=== PATIENT | female | born 1985 | race Caucasian/White ===

== ENCOUNTER 2020-12-05 14:21 | Emergency (ER) | payer SELFPAY ==
[2020-12-05 15:05] LABS: BASOPHILS # (AUTO) 0.1 10^3/uL (0.0-0.1); BASOPHILS % (AUTO) 0.5 %; EOSINOPHILS # (AUTO) 0.1 10^3/uL (0.0-0.7); EOSINOPHILS % (AUTO) 0.4 %; HGB - HEMOGLOBIN 13.2 g/dL (12.0-16.0); LYMPHOCYTES # (AUTO) 1.1 10^3/uL (1.5-3.5); LYMPHOCYTES % (AUTO) 7.9 %; MEAN CORPUSCULAR HEMOGLOBIN 30.9 pg (27.0-31.0); MEAN CORPUSCULAR HGB CONC 32.6 g/dL (32.0-36.0); MEAN CORPUSCULAR VOLUME 94.8 fL (81.0-99.0); MEAN PLATELET VOLUME 11.1 fL (7.9-10.8); MONOCYTES # (AUTO) 0.6 10^3/uL (0.0-1.0); MONOCYTES % (AUTO) 4.5 %; NEUTROPHILS # (AUTO) 12.1 10^3/uL (1.5-6.6); NEUTROPHILS % (AUTO) 86.3 %; PLT - PLATELET COUNT 262 10^3/uL (130-450); RED BLOOD COUNT 4.27 10^6/uL (4.20-5.40); RED CELL DISTRIBUTION WIDTH 12.8 % (12.0-15.0)
[2020-12-05 15:13] LABS: ALBUMIN 4.5 g/dL (3.2-5.5); ALBUMIN/GLOBULIN RATIO 1.7 (1.0-2.2); BILIRUBIN,TOTAL 0.2 mg/dL (0.2-1.0); CREATININE 0.8 mg/dL (0.4-1.0); TOTAL PROTEIN 7.2 g/dL (6.7-8.2)
[2020-12-05] MEDS ORDERED: HYDROmorphone 1 MG/ML CARPUJECT IVP STA (16:04)
[2020-12-05] MEDS ORDERED: LIDOCAINE VISCOUS 2% 15 ML UDC MM STA (16:04)
[2020-12-05] MEDS ORDERED: PANTOPRAZOLE 40 MG VIAL IVP STA (16:04)
[2020-12-05] MEDS ORDERED: SODIUM CHLORIDE 0.9% 1,000 ML IV STA (16:04)
[2020-12-05] MEDS ORDERED: ONDANSETRON 4 MG/2 ML VIAL IVP STA (16:04)
--- NOTE | 2020-12-05 16:07 | ED Physician Documentation ---
History of Present Illness - Stated complaint Stated Complaint: THROWING UP BLOOD,ABD PX - Chief complaint Chief Complaint: Abd Pain - Additonal information Additional information: 34-year-old female presents to the emergency department for evaluation of uncontrolled vomiting and blood-tinged vomit. She reports that for 2 to 3 days she has felt gassy and bloated. Last night after dinner she went to bed feeling nauseated and woke up about 1 AM and began to vomit. She had about 8 or 9 episodes of vomiting and found that there was some blood streaking in the vomit. There was no coffee-ground emesis. No melena or hematochezia. She does report some diarrhea that is loose watery and brown. Denies a history of anticoagulants, NSAID use or ETOH frequency. She is tobacco user. No previous history of abdominal surgeries. Review of Systems Constitutional: denies: Fever, Chills Eyes: reports: Reviewed and negative Ears: reports: Reviewed and negative Nose: reports: Reviewed and negative Throat: reports: Reviewed and negative Cardiac: reports: Reviewed and negative Respiratory: reports: Reviewed and negative GI: reports: Abdominal Pain, Nausea, Vomiting, Hematemesis. denies: Constipation, Diarrhea, Bloody / black stool : denies: Dysuria, Frequency, Hesitancy Skin: denies: Rash, Lesions Musculoskeletal: reports: Reviewed and negative Neurologic: reports: Reviewed and negative PD PAST MEDICAL HISTORY - Past Medical History Past Medical History: No - Present Medications Home Medications: Ambulatory Orders Medication Instructions Recorded Confirmed Omeprazole 40 mg PO DAILY #14 capsule. 12/05/20 Ondansetron Odt [Zofran] 4 mg TL Q6H PRN #10 tablet 12/05/20 - Allergies Allergies/Adverse Reactions: Allergies Allergy/AdvReac Type Severity Reaction Status Date / Time Penicillins Allergy Rash Verified 12/05/20 14:36 Sulfa (Sulfonamide Allergy Hives Verified 12/05/20 14:36 Antibiotics) - Social History Does the pt smoke?: No Smoking Status: Never smoker PD ED PE NORMAL - General General: Alert and oriented X 3, No acute distress, Well developed/nourished - HEENT HEENT: PERRL, Moist mucous membranes - Neck Neck: Supple, no meningeal sign, No adenopathy - Cardiac Cardiac: RRR, No murmur, No gallop, No rub - Respiratory Respiratory: No respiratory distress, Clear bilaterally - Abdomen Abdomen: Normal bowel sounds, Soft. No: Non tender (Very minimal epigastric tenderness without guarding or rebound. Negative Owen's, negative McBurney's. Generally very reassuring abdominal exam) - Back Back: No CVA TTP, No spinal TTP - Derm Derm: Normal color, Warm and dry, No rash - Extremities Extremities: No deformity, No tenderness to palpate, Normal ROM s pain - Neuro Neuro: Alert and oriented X 3, senior teller 2-12 intact Eye Opening: Spontaneous Motor: Obeys Commands Verbal: Oriented GCS Score: 15 - Psych Psych: Normal mood Results - Vitals Vitals: Vital Signs - 24 hr 12/05/20 12/05/20 12/05/20 14:33 15:22 16:15 Temperature 36.4 C L 36.7 C Heart Rate 58 L 52 L 70 Respiratory 16 24 16 Rate Blood Pressure 124/63 111/52 L 115/67 O2 Saturation 100 100 99 Oxygen O2 Source Room air - Labs Labs: Laboratory Tests 12/05/20 12/05/20 12/05/20 14:55 14:55 16:11 WBC 14.0 H RBC 4.27 Hgb 13.2 Hct 40.5 MCV 94.8 MCH 30.9 MCHC 32.6 RDW 12.8 Plt Count 262 MPV 11.1 H Neut # (Auto) 12.1 H Lymph # (Auto) 1.1 L Jenkins # (Auto) 0.6 Eos # (Auto) 0.1 Baso # (Auto) 0.1 Absolute Nucleated RBC 0.00 Nucleated RBC % 0.0 Sodium 138 Potassium 3.9 Chloride 101 Carbon Dioxide 28 Anion Gap 9.0 BUN 13 Creatinine 0.8 Estimated GFR (MDRD) 81 L Glucose 204 H Calcium 9.0 Total Bilirubin 0.2 AST 15 ALT 13 Alkaline Phosphatase 51 Total Protein 7.2 Albumin 4.5 Globulin 2.7 Albumin/Globulin Ratio 1.7 Lipase 26 Urine Color YELLOW Urine Clarity CLOUDY Urine pH 8.0 H Ur Specific Chamberlain 1.015 Urine Protein TRACE Urine Glucose (UA) NEGATIVE Urine Ketones 40 H Urine Occult Blood NEGATIVE Urine Nitrite NEGATIVE Urine Bilirubin NEGATIVE Urine Urobilinogen 0.2 (NORMAL) Ur Leukocyte Esterase NEGATIVE Urine RBC None Seen Urine WBC 0-3 Ur Squamous Epith Cells NONE SEEN Amorphous Sediment Marked Urine Bacteria None Seen Ur Microscopic Review INDICATED Urine Culture Comments NOT INDICATED PD MEDICAL DECISION MAKING - ED course Complexity details: reviewed results, re-evaluated patient, considered differential, d/w patient ED course: 34-year-old female presents the emergency department for evaluation of vomiting that began about 1 AM, epigastric pain and blood-tinged emesis. She reports that prior to the symptom of vomiting developing she had had abdominal bloating for 2 days. Here in the emergency department she had very mild epigastric tenderness only. Her electrolytes do not reveal any acute kidney injury or LFT abnormality. My suspicion for acute Qian is exceedingly low. She did report blood-tinged sputum after vomiting multiple times. I suspect she may have a stress gastritis. She was given lidocaine here in the emergency department as well as Protonix. Following this she was pain-free. She was also given Zofran and then tolerating sips of clear liquids. She does have a mild leukocytosis on CBC but no fevers. I suspect this is a stress marginalization. Her hemoglobin is normal without anemia. Following fluids, Zofran and pain medication patient is markedly improved. She has been normotensive and without tachycardia. She will be discharged home. I will write a prescription for omeprazole to be taken once or twice daily and to follow-up closely with her primary care doctor. In the future she may warrant evaluation or referral by a rolled glass crosscutter for possible EGD. Emergent return precautions were discussed Departure - Departure Disposition: 01 Home, Self Care Clinical Impression: Epigastric abdominal pain Vomiting Qualifiers: Vomiting type: unspecified Vomiting Intractability: non-intractable Nausea presence: with nausea Qualified Code(s): R11.2 - Nausea with vomiting, unspecified Condition: Stable Record reviewed to determine appropriate education?: Yes Instructions: ED Nausea Vomiting Ch Follow-Up: [facility] [Provider Group] Prescriptions: Omeprazole 40 mg PO DAILY #14 capsule. Ondansetron Odt [Zofran] 4 mg TL Q6H PRN #10 tablet PRN Reason: Nausea / Vomiting Comments: Karla you were seen in the emergency department today for vomiting. You did report blood-tinged vomit after throwing up multiple times. This can be a common finding in people that have vomited excessively. As we discussed I suspect you may have had a mild virus causing the vomiting and diarrhea but it is also likely that you are developing gastritis or stomach ulcers with your history of recent stress. I would like you to fill the prescription for the Zofran and take 2-3 times daily for the next few days. I recommend that you drink clear liquids for the next 24 hours then slowly advance your diet as tolerated to include simple foods like bananas, rice applesauce or toast. I have written a prescription for omeprazole. This is an acid slinger sequins that may help with your stomach inflammation. Please schedule an appointment for follow- up with your primary care doctor in the long-term you may need evaluation by a rolled glass crosscutter to have an EGD where they could place a camera into your stomach to look for ulcers. At any point you have high fevers, uncontrolled vomiting, black or bloody stools or suddenly severe abdominal pain please return immediately to the ER for a second evaluation
[2020-12-05 16:16] LABS: BILIRUBIN,URINE NEGATIVE (NEGATIVE); GLUCOSE, URINE (UA) NEGATIVE (NEGATIVE); KETONES,URINE (UA) 40 mg/dL (NEGATIVE); LEUKOCYTE ESTERASE, URINE NEGATIVE (NEGATIVE); NITRITE,URINE NEGATIVE (NEGATIVE); OCCULT BLOOD,URINE NEGATIVE (NEGATIVE); PROTEIN,URINE TRACE mg/dL (NEGATIVE); UROBILINOGEN,URINE 0.2 (NORMAL) E.U./dL (NORMAL)
[2020-12-05 16:20] LABS: CLARITY,URINE CLOUDY (CLEAR)
[2020-12-05 16:35] LABS: AMORPHOUS SEDIMENT,UR Marked /LPF; BACTERIA,URINE None Seen /HPF (None Seen); RBC,URINE None Seen /HPF (0-5); SQUAMOUS EPITHELIAL CELL,UR NONE SEEN (<= Few)
[2020-12-05 16:55] LABS: HCG UR QUAL NEGATIVE
[2020-12-05 17:08] VITALS: BP 110/62
== END 2020-12-05 17:08 | disposition home or self-care (01) ==
LOC: ED 14:21
DX: R10.13 Epigastric pain (principal); R11.2 Nausea with vomiting, unspecified; F43.9 Reaction to severe stress, unspecified; F17.200 Nicotine dependence, unspecified, uncomplicated
CPT/HCPCS: 36415; 80053; 81001; 81025; 83690; 85025; 96374; 99283; J1170; 81003; 87086

== ENCOUNTER 2022-10-01 12:55 | Emergency (ER) | payer MEDICAID ==
[2022-10-01 13:56] LABS: BASOPHILS # (AUTO) 0.1 10^3/uL (0.0-0.1); BASOPHILS % (AUTO) 1.1 %; EOSINOPHILS # (AUTO) 0.4 10^3/uL (0.0-0.7); EOSINOPHILS % (AUTO) 5.1 %; HCT - HEMATOCRIT 40.6 % (37.0-47.0); HGB - HEMOGLOBIN 13.2 g/dL (12.0-16.0); LYMPHOCYTES # (AUTO) 2.1 10^3/uL (1.5-3.5); LYMPHOCYTES % (AUTO) 25.6 %; MEAN CORPUSCULAR HEMOGLOBIN 30.2 pg (27.0-31.0); MEAN CORPUSCULAR HGB CONC 32.5 g/dL (32.0-36.0); MEAN CORPUSCULAR VOLUME 92.9 fL (81.0-99.0); MEAN PLATELET VOLUME 11.1 fL (7.9-10.8); MONOCYTES # (AUTO) 0.5 10^3/uL (0.0-1.0); NEUTROPHILS # (AUTO) 5.1 10^3/uL (1.5-6.6); PLT - PLATELET COUNT 270 10^3/uL (130-450); RED BLOOD COUNT 4.37 10^6/uL (4.20-5.40); RED CELL DISTRIBUTION WIDTH 12.7 % (12.0-15.0); WHITE BLOOD COUNT 8.3 x10^3/uL (4.8-10.8)
[2022-10-01 14:08] LABS: ALBUMIN 4.1 g/dL (3.2-5.5); ALBUMIN/GLOBULIN RATIO 1.4 (1.0-2.2); BILIRUBIN,TOTAL 0.3 mg/dL (0.2-1.0); CALCIUM 9.3 mg/dL (8.5-10.3); CREATININE 0.9 mg/dL (0.4-1.0); POTASSIUM 4.4 mmol/L (3.5-5.0)
[2022-10-01 17:08] LABS: BILIRUBIN,URINE NEGATIVE (NEGATIVE); CLARITY,URINE CLEAR (CLEAR); GLUCOSE, URINE (UA) 100 mg/dL (NEGATIVE); KETONES,URINE (UA) NEGATIVE (NEGATIVE); LEUKOCYTE ESTERASE, URINE NEGATIVE (NEGATIVE); NITRITE,URINE NEGATIVE (NEGATIVE); OCCULT BLOOD,URINE LARGE (NEGATIVE); PROTEIN,URINE NEGATIVE (NEGATIVE); UROBILINOGEN,URINE 0.2 (NORMAL) E.U./dL (NORMAL)
[2022-10-01 17:12] LABS: HCG UR QUAL NEGATIVE
[2022-10-01 17:13] LABS: BACTERIA,URINE Few /HPF (None Seen); SQUAMOUS EPITHELIAL CELL,UR MOD Squamous (<= Few); WBC,URINE 0-3 /HPF (0-5)
[2022-10-01 17:14] LABS: MUCUS,URINE Few Strands
[2022-10-01] MEDS ORDERED: SUCRALFATE 1 GM/10 ML UDC PO STA (17:51)
[2022-10-01] MEDS ORDERED: MAG HYDROX/AL HYDROX/SIMETH 30 ML UDC PO STA (17:51)
[2022-10-01] MEDS ORDERED: FAMOTIDINE 20 MG TABLET PO STA (17:51)
[2022-10-01] MEDS ORDERED: iohexoL-300 100 ML VIAL ONE (17:55)
[2022-10-01] MEDS ORDERED: iohexoL-300 100 ML VIAL IVP ONE (18:08)
--- NOTE | 2022-10-01 18:37 | CT Report ---
PROCEDURE: ABDOMEN/PELVIS W INDICATIONS: diffuse abd pain CONTRAST: 100ml omni 300 TECHNIQUE: After the administration of IV contrast, 5 mm thick sections acquired from the diaphragms to the symp hysis. 5 mm thick coronal and sagittal reformats were acquired. For radiation dose reduction, the f ollowing was used: automated exposure control, adjustment of mA and/or kV according to patient size. COMPARISON: None. FINDINGS: Image quality: Good Lower chest: Unremarkable. Mild hyperemia of the gastroesophageal junction Solid organs: Liver is unremarkable. No pathologic dilation of the pancreatic duct or biliary tree. T he gallbladder is collapsed. No splenomegaly. Adrenal thickening without discrete nodule. No hydronep hrosis. Vessels and lymph nodes: No abdominal aortic aneurysm or pathologic adenopathy by size criteria. Bowel and peritoneum: Mildly hyperemic gastric mucosa. There is also mild duodenal wall thickening an d hyperemia. No bowel obstruction. Moderate fecal loading. Normal appendix. No pathologic ascites Hyperdense bodies are seen in the colon, probably ingested, for example the splenic flexure. Body wall: Small fat-containing umbilical hernia. Pelvis: Bladder is unremarkable. Overall physiologic appearance of the reproductive organs, not well evaluated on CT . This area could be better evaluated with ultrasound if needed. Bones: No acute or suspicious osseous abnormality. IMPRESSION: Possible gastroduodenitis. Endoscopy could further evaluate if necessary. Otherwise, no acute abdomin opelvic pathology. Moderate fecal loading. Possible ingested hyperdensities in the colon. Other findi ngs as above. Reviewed by: Alex Sloan MD on 10/01/2022 6:36 PM PST Approved by: Alex Sloan MD on 10/01/2022 6:36 PM PST Station ID: [id number]
--- NOTE | 2022-10-01 19:05 | ED Physician Documentation ---
PD HPI ABD PAIN - Stated complaint Stated Complaint: ABD PX - Chief complaint Chief Complaint: Abd Pain - History obtained from History obtained from: Patient - History of Present Illness Timing - onset: How many weeks ago (several) Timing - duration: Weeks Timing - details: Gradual onset Pain level max: 5 Pain level now: 5 Quality: Aching, Pain Location: Epigastric Improved by: Other (nothing) Worsened by: Eating Associated symptoms: Nausea. No: Fever, Vomiting, Hematemesis, Diarrhea, Constipation, Melena, Hematochezia Recently seen: Not recently seen - Additional information Additional information: Patient is a 36-year-old female who presents to the emergency department with epigastric abdominal pain. Ongoing for the past several weeks but worsening recently. History of a gastric ulcer. Has some nausea but no vomiting. No hematemesis, diarrhea, constipation, melena, hematochezia. Worse with eating and drinking. Nothing makes it better. Feels similar to prior ulcer. Review of Systems Constitutional: denies: Fever, Chills Cardiac: denies: Chest pain / pressure, Palpitations Respiratory: denies: Dyspnea, Cough GI: denies: Vomiting, Diarrhea : denies: Now EGA Skin: denies: Rash Musculoskeletal: denies: Neck pain, Back pain Neurologic: denies: Headache PD PAST MEDICAL HISTORY - Past Medical History Past Medical History: Yes GI: Ulcers Psych: Post traumatic stress disorder - Past Surgical History Past Surgical History: Yes HEENT: Tonsil/Adenoidectomy - Present Medications Home Medications: Ambulatory Orders Medication Instructions Recorded Confirmed Omeprazole 40 mg PO DAILY #14 capsule. 12/05/20 Ondansetron Odt [Zofran] 4 mg TL Q6H PRN #10 tablet 12/05/20 Esomeprazole Magnesium [Nexium] 40 mg PO DAILY #30 cap 10/01/22 Famotidine [Pepcid] 20 mg PO BID #60 tablet 10/01/22 Sucralfate [Carafate] 1 gm PO ACHS #60 tablet 10/01/22 - Allergies Allergies/Adverse Reactions: Allergies Allergy/AdvReac Type Severity Reaction Status Date / Time Penicillins Allergy Rash Verified 12/05/20 14:36 Sulfa (Sulfonamide Allergy Hives Verified 12/05/20 14:36 Antibiotics) - Social History Does the pt smoke?: Yes Smoking Status: Current every day smoker Does the pt drink ETOH?: No Does the pt have substance abuse?: No Substance Use and Type: Marijuana - POLST Patient has POLST: No PD ED PE NORMAL - Vitals Vital signs reviewed: Yes - General General: Alert and oriented X 3, No acute distress - HEENT HEENT: PERRL, Moist mucous membranes - Neck Neck: Supple, no meningeal sign - Cardiac Cardiac: RRR, Strong equal pulses - Respiratory Respiratory: No respiratory distress, Clear bilaterally - Abdomen Abdomen: Soft, Non tender, Non distended - Back Back: No CVA TTP, No spinal TTP - Derm Derm: Warm and dry, No rash - Extremities Extremities: No edema - Neuro Neuro: Alert and oriented X 3 - Psych Psych: Normal mood, Normal affect Results - Vitals Vitals: Vital Signs - 24 hr 10/01/22 10/01/22 13:29 19:22 Temperature 36 C L Heart Rate 72 63 Respiratory 14 18 Rate Blood Pressure 139/78 H 98/64 O2 Saturation 100 100 Oxygen O2 Source Room air - Labs Labs: Laboratory Tests 10/01/22 10/01/22 10/01/22 13:51 13:51 16:51 WBC 8.3 RBC 4.37 Hgb 13.2 Hct 40.6 MCV 92.9 MCH 30.2 MCHC 32.5 RDW 12.7 Plt Count 270 MPV 11.1 H Neut # (Auto) 5.1 Lymph # (Auto) 2.1 Noble # (Auto) 0.5 Eos # (Auto) 0.4 Baso # (Auto) 0.1 Absolute Nucleated RBC 0.00 Nucleated RBC % 0.0 Sodium 137 Potassium 4.4 Chloride 102 Carbon Dioxide 27 Anion Gap 8.0 BUN 7 Creatinine 0.9 Estimated GFR (MDRD) 70 L Glucose 242 H Calcium 9.3 Total Bilirubin 0.3 AST 17 ALT 12 Alkaline Phosphatase 50 Total Protein 7.0 Albumin 4.1 Globulin 2.9 Albumin/Globulin Ratio 1.4 Lipase 80 H Urine Color YELLOW Urine Clarity CLEAR Urine pH 6.0 Ur Specific Hammond <=1.005 Urine Protein NEGATIVE Urine Glucose (UA) 100 H Urine Ketones NEGATIVE Urine Occult Blood LARGE H Urine Nitrite NEGATIVE Urine Bilirubin NEGATIVE Urine Urobilinogen 0.2 (NORMAL) Ur Leukocyte Esterase NEGATIVE Urine RBC 6-10 H Urine WBC 0-3 Ur Squamous Epith Cells MOD Squamous H Urine Bacteria Few Urine Mucus Few Strands Ur Microscopic Review INDICATED Urine Culture Comments NOT INDICATED Urine HCG, Qual NEGATIVE - Rads (name of study) CT abdomen pelvis Radiology: Final report received, EMP read contemporaneously, See rad report PD MEDICAL DECISION MAKING - ED course Complexity details: reviewed results, re-evaluated patient, considered differential, d/w patient ED course: Patient is a 28-year-old female who presents with abdominal pain. CT scan shows likely gastroduodenitis. Will place on Carafate, H2 santino, PPI and have her follow-up with her doctor for further care. No evidence of perforation. No evidence of active bleeding. Patient is well-appearing, nontoxic. Afebrile. Patient was counseled regarding dietary changes. Patient counseled regarding signs and symptoms for which I believe and urgent re-evaluation would be necessary. Patient with good understanding of and agreement to plan and is comfortable going home at this time This document was made in part using voice recognition software. While efforts are made to proofread this document, sound alike and grammatical errors may occur. Recommend repeat endoscopy. IMPRESSION: Possible gastroduodenitis. Endoscopy could further evaluate if necessary. Otherwise, no acute abdominopelvic pathology. Moderate fecal loading. Possible ingested hyperdensities in the colon. Other findings as above. Departure - Departure Disposition: 01 Home, Self Care Clinical Impression: Gastroduodenitis Condition: Good Instructions: ED PUD Vs Gastritis Follow-Up: your,doctor in 1 week [Other] Prescriptions: Sucralfate [Carafate] 1 gm PO ACHS #60 tablet Esomeprazole Magnesium [Nexium] 40 mg PO DAILY #30 cap Famotidine [Pepcid] 20 mg PO BID #60 tablet Comments: Your prescriptions were sent to [facility] in [place]. Please follow-up with your doctor for further care. They will likely want to refer you to surgery or gastroenterology for a repeat endoscopy. Discharge Date/Time: 10/01/22 19:34
[2022-10-01] MEDS ORDERED: ACETAMINOPHEN 325 MG TABLET PO STA (19:22)
[2022-10-01 19:23] VITALS: BP 98/64
== END 2022-10-01 19:34 | disposition home or self-care (01) ==
LOC: ED 12:55
DX: K29.90 Gastroduodenitis, unspecified, without bleeding (principal); F17.200 Nicotine dependence, unspecified, uncomplicated
CPT/HCPCS: 36415; 74177; 80053; 81001; 81025; 83690; 85025; 99284; A9270; Q9967; 81003; 87086